=== PATIENT | female | born 1960 | race Caucasian/White ===

== ENCOUNTER 2022-08-16 16:27 | Emergency (ER) | payer OTHER ==
[~2022-08-16] VITALS: Ht 147.3 cm; Wt 53.8 kg
[2022-08-16 17:15] VITALS: BP 223/88
[2022-08-16] MEDS ORDERED: hydrALAZINE 10 MG TAB PO STA (17:47)
--- NOTE | 2022-08-16 17:48 | NUR ---
INFORMED ERMD OF PT BP 222/79, PER ERMD HE WILL PLACE ORDERS
[2022-08-16] MEDS ORDERED: CALC500C17 PO (18:15)
[2022-08-16] MEDS ORDERED: GUAI-791 PO (18:15)
[2022-08-16 18:18] LABS: BASOPHILS % (AUTO) 0.8 % (0.0-2.0); EOSINOPHILS # (AUTO) 0.1 K/uL (0-0.4); HEMATOCRIT 39.6 % (36-48); HEMOGLOBIN 13.4 g/dL (12.0-16.0); LYMPHOCYTES # (AUTO) 1.8 K/uL (2.5-16.5); LYMPHOCYTES % (AUTO) 35.1 % (20.5-51.1); MEAN CORPUSCULAR HEMOGLOBIN 29 pg (27-31); MEAN CORPUSCULAR HGB CONC 34 g/dL (33-37); MEAN CORPUSCULAR VOLUME 85.6 fL (80-94); MONOCYTES # (AUTO) 0.3 K/uL (0.8-1.0); NEUTROPHILS # (AUTO) 2.9 K/uL (1.8-7.7); NEUTROPHILS % (AUTO) 57.1 % (42.2-75.2); PLATELET COUNT (AUTO) 317 K/uL (140-450); RED BLOOD CELL COUNT(AUTO) 4.63 MIL/uL (4.20-5.40); WHITE BLOOD COUNT (AUTO) 5.1 K/uL (4.8-10.8)
[2022-08-16] MEDS ORDERED: ACETAMINOPHEN 325 MG TAB PO ONE (18:20)
[2022-08-16 18:40] LABS: ALBUMIN 3.7 g/dL (3.4-5.0); ANION GAP 12.4 (8-16); ASPARTATE AMINOTRANSFERASE 19 U/L (15-37); CARBON DIOXIDE 29.2 mmol/L (21-32); CHLORIDE 103 mmol/L (98-107); CREATININE 0.8 mg/dL (0.6-1.3); GFR ARICAN-AMERICAN 93 mL/min (>90); GLUCOSE 94 mg/dL (74-106); POTASSIUM 3.6 mmol/L (3.5-5.1); SODIUM SERUM 141 mmol/L (136-145); TOTAL BILIRUBIN 0.5 mg/dL (0.0-1.0); UREA NITROGEN, BLOOD 17 mg/dL (7-18)
[2022-08-16] MEDS ORDERED: AMLO10TA PO (19:03)
--- NOTE | 2022-08-16 19:04 | NUR ---
62 Y/O FEMALE BIB SELF C/O RIGHT SIDED YBARRA, "BURNING AND ELECTRICITY" THROUGHT ENTIRE RIGHT SIDE OF THE BODY. DENIESD BLURRING OF VISION, EQUAL BILATERAL HAND GRASPS. PER PT SHE STARTED HAVING THIS FEELING STARTING 11AM TODAY. UNABLE TO RECALL ANY PREVIOUS EXPERIENCES THAT MAY HAVE TRIGGERED. BLOOD SUGAR 97, BP 223/88 IN TRIAGE, 222/79 IN BED. PMH: DENIES ALLERGY: ASA
--- NOTE | 2022-08-16 19:25 | NUR ---
Pt report given to RHONA CHAPMAN. Transfer of care at this time.
--- NOTE | 2022-08-16 21:13 | NUR ---
PT TO RAS
--- NOTE | 2022-08-16 21:30 | NUR ---
BP RECHECK 150/76. MD AWARE.
[2022-08-16 21:38] VITALS: BP 150/76
--- NOTE | 2022-08-16 21:43 | NUR ---
Patient discharged with v/s stable. Written and verbal after care instructions given and explained. Patient verbalized understanding. Ambulatory with steady gait. All questions addressed prior to discharge. Advised to follow up with PMD.
== END 2022-08-16 21:43 | disposition home or self-care (01) ==
LOC: MED 16:27
DX: R51.9 Headache, unspecified (principal); M79.641 Pain in right hand; I10 Essential (primary) hypertension; Z79.899 Other long term (current) drug therapy
CPT/HCPCS: 36415; 70450; 71045; 80053; 81002; 84484; 85025; 93005; 99285; Q0092